=== PATIENT | female | born 1950 | race Caucasian/White ===

== ENCOUNTER 2016-11-01 22:51 | Emergency (ER) | payer OTHER | END 2016-11-01 23:11 | disposition home or self-care (01) | LOC: ER 22:51 | DX: S09.90XA Unspecified injury of head, initial encounter (principal); S80.02XA Contusion of left knee, initial encounter; S00.81XA Abrasion of other part of head, initial encounter; Z88.5 Allergy status to narcotic agent; Z88.8 Allergy status to other drugs, medicaments and biological substances; W19.XXXA Unspecified fall, initial encounter; Y99.0 Civilian activity done for income or pay | CPT/HCPCS: 73560-LT; 99283; A9270-GY ==

== ENCOUNTER 2016-11-07 22:04 | Emergency (ER) | payer OTHER | END 2016-11-08 02:30 | LOC: ER 22:04 | DX: S06.5X0A Traumatic subdural hemorrhage without loss of consciousness, initial encounter (principal); Z88.1 Allergy status to other antibiotic agents; W19.XXXA Unspecified fall, initial encounter; Y92.69 Other specified industrial and construction area as the place of occurrence of the external cause | CPT/HCPCS: 70450; 99284 ==